=== PATIENT | male | born 1990 | race Caucasian/White ===

== ENCOUNTER 2017-01-20 18:17 | Emergency (ER) | payer SELFPAY ==
[~2017-01-20] VITALS: Ht 172.7 cm; Wt 75.3 kg
[~2017-01-20 18:17] MED LIST: MEDR4PAK3 PO; METH36 PO
[2017-01-20 18:18] VITALS: BP 127/59; PULSE 60; RESP 16; TEMP 97.5; O2SAT 99
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
== END 2017-01-20 19:17 | disposition home or self-care (01) ==
LOC: PHEFT 18:17
DX: S09.90XA Unspecified injury of head, initial encounter (principal); V89.2XXA Person injured in unspecified motor-vehicle accident, traffic, initial encounter
CPT/HCPCS: 99282